=== PATIENT | female | born 1945 | race Caucasian/White ===

== ENCOUNTER 2024-03-25 06:13 | Day surgery (SDC) | payer OTHER ==
[2024-03-19 11:33] VITALS: BMI 27.4
[2024-03-25] MEDS ORDERED: OXYMETAZOLINE 0.05% NASAL SOLUTION 15 ML BOTTLE NS ONE (07:23)
[2024-03-25] MEDS ORDERED: ERYTHROMYCIN 0.5% OPHTHALMIC OINTMENT 3.5 GM TUBE ONE (07:23)
[2024-03-25] MEDS ORDERED: TETRACAINE 0.5% OPHTH SOLN 2 ML BOTTLE ONE (07:23)
[2024-03-25] MEDS ORDERED: ceFAZolin SODIUM 1 GM VIAL ONE ×2 (07:23→07:27)
[2024-03-25] MEDS ORDERED: THROMBIN (BOVINE) 5,000 UNIT VIAL TP ONE (07:24)
[2024-03-25] MEDS ORDERED: BUPIVACAINE HCL/PF 0.5% (5MG/ML) 10 ML VIAL ONE (07:24)
[2024-03-25] MEDS ORDERED: POVIDONE-IODINE 5% OPHTHALMIC PREP 30 ML SOLUTION ONE (07:24)
[2024-03-25] MEDS ORDERED: LIDOCAINE 1%/EPI 1:100000 (20 ML MULTI DOSE VIAL) ONE (07:24)
[2024-03-25] MEDS ORDERED: BSS (NA/CA/MG/K) BALANCED SALT SOLUTION OPHTH SOLN 15 ML BOTTLE ONE (07:24)
[2024-03-25] MEDS ORDERED: LIDOCAINE HCL/PF 2% SDV 5ML VIAL ONE (07:27)
[2024-03-25] MEDS ORDERED: PROPOFOL 40 ML ONE (07:28)
[2024-03-25] MEDS ORDERED: MIDAZOLAM HCL 2 MG/2 ML SINGLE DOSE VIAL ONE (07:28)
[2024-03-25] MEDS ORDERED: ePHEDrine SULFATE 50 MG/1 ML AMPULE ONE (08:13)
[2024-03-25] MEDS ORDERED: ONDANSETRON 4 MG/2 ML VIAL ONE (08:32)
[2024-03-25] MEDS ORDERED: ONDANSETRON 4 MG/2 ML VIAL IVPUSH PRN (09:06)
[2024-03-25] MEDS ORDERED: oxyCODONE HCL 5 MG TABLET PO PRN (09:06)
[2024-03-25] MEDS ORDERED: LACTATED RINGERS SOLUTION 1,000 ML IV SCH (09:15)
[2024-03-25 10:03] VITALS: RESP 16; TEMP 96.8
[2024-03-25 10:47] VITALS: BP 135/63; PULSE 64
== END 2024-03-25 11:35 | disposition home or self-care (01) ==
LOC: FASU 06:13
PROVIDERS: ATTEND Ophthalmology
PROC: 08BX0ZX Excision of Right Lacrimal Duct, Open Approach, Diagnostic (ICD-10-PCS; 2024-03-25)
PROC: 081X0Z3 Bypass Right Lacrimal Duct to Nasal Cavity, Open Approach (ICD-10-PCS; principal; 2024-03-25 08:13)
DX: H04.552 Acquired stenosis of left nasolacrimal duct (principal)
CPT/HCPCS: 88304-TC; 94760